=== PATIENT | male | born 1990 | race Caucasian/White ===

== ENCOUNTER 2025-02-03 14:58 | Outpatient (REF) | payer MEDICAID, SELFPAY ==
[2025-02-03 16:36] LABS: Anion Gap 9 (12-20); Blood Urea Nitrogen 11 mg/dL (9-16); Calcium 9.1 mg/dL (8.4-10.2); Carbon Dioxide 31 mmol/L (22-29); Chloride 105 mmol/L (96-108); Estimated Glomerular Filt Rate > 60; Potassium 4.0 mmol/L (3.3-5.1); Sodium 141 mmol/L (135-145)
[2025-02-03 16:55] LABS: Microalbum/Creatinine Ratio Ur 11.4 ug/mg cr (<30)
== END 2025-02-03 14:59 | disposition home or self-care (01) ==
LOC: HO.HHCL 14:58
PROVIDERS: PCP Nurse Practitioner; Visit Provider Nurse Practitioner
DX: I16.0 Hypertensive urgency (principal)
CPT/HCPCS: 36415; 80048; 82043; 82570

== ENCOUNTER → 2025-02-25 11:18 | Outpatient (REF) | payer MEDICAID, SELFPAY ==
--- NOTE | 2025-02-25 11:29 | ECG_ITS ---
Test Reason : htn Blood Pressure : */* mmHG Vent. Rate : 69 BPM Atrial Rate : 69 BPM P-R Int : 174 ms QRS Dur : 88 ms QT Int : 362 ms P-R-T Axes : 51 52 1 degrees QTcB Int : 387 ms Normal sinus rhythm Normal ECG No previous ECGs available Referred By: Ping Capps Electronically Signed By: LAUREN CÁRDENAS
== END ==
LOC: HO.CARD 11:18
PROVIDERS: PCP Family Medicine; Visit Provider Family Medicine
DX: I10 Essential (primary) hypertension (principal)
CPT/HCPCS: 93005

== ENCOUNTER → 2025-02-25 11:29 | Outpatient (BNV) | payer MEDICAID, SELFPAY | PROVIDERS: PCP Family Medicine; Visit Provider Internal Medicine | DX: I10 Essential (primary) hypertension (principal) | CPT/HCPCS: 93010 ==